=== PATIENT | female | born 1950 ===

== ENCOUNTER 2020-07-21 07:56 | Day surgery (SDC) | payer MEDICARE ==
[~2020-07-21 07:56] MED LIST: Lactated Ringers 1,000 ML IV SCH; Lidocaine 2% 5 ML SDV ONE; Midazolam 1 MG/ML 2 ML SDV ONE; Propofol 200 MG/20 ML SDV ONE; Sodium Chloride 0.9% 10 ML SDV IV PRN; Sodium Chloride 0.9% 10 ML Syringe FLUSH PRN; Sodium Chloride 0.9% 2.5 ML Syringe FLUSH PRN; fentaNYL 100 MCG/2 ML SDV ONE
--- NOTE | 2020-07-21 08:30 | PCM.PREANE ---
Preanesthetic Assessment - Anesthesia/Transfusion/Family Hx Anesthesia History: Prior Anesthesia Without Reaction Other Type of Anesthesia Reaction Comment: has had N&V in the past, not with recent Cholecystectomy Family History of Anesthesia Reaction: No Transfusion History: No Prior Transfusion(s) - Review of Systems General: No Symptoms Pulmonary: No Symptoms Cardiovascular: No Symptoms Neurological: No Symptoms Other: Reports: None - Physical Assessment NPO Status Date: 07/20/20 Vital Signs: Last Vital Signs Temp 97.9 F 07/21/20 08:04 Pulse 81 07/21/20 08:04 Resp 16 07/21/20 08:04 BP 136/86 07/21/20 08:04 Pulse Ox 93 L 07/21/20 08:04 Height: 5 ft 3 in Weight: 86.183 kg ASA Class: 1 Mental Status: Alert & Oriented x3 Dentition: Reports: Dentures (upper) ROM/Head Extension: Full Lungs: Clear to Auscultation, Normal Respiratory Effort Cardiovascular: Regular Rate, Regular Rhythm - Allergies Allergies/Adverse Reactions: Allergies Allergy/AdvReac Type Severity Reaction Status Date / Time Sulfa (Sulfonamide Allergy Vomiting Verified 07/15/20 10:01 Antibiotics) - Blood Blood Available: No - Anesthesia Plan Pre-Op Medication Ordered: None - Acknowledgements Anesthesia Type Planned: General Anesthesia (tiva) Pt an Appropriate Candidate for the Planned Anesthesia: Yes Alternatives and Risks of Anesthesia Discussed w Pt/Guardian: Yes Pt/Guardian Understands and Agrees with Anesthesia Plan: Yes PreAnesthesia Questionnaire HEENT History: Reports: Cataract Cardiovascular History: Reports: None Respiratory History: Reports: None Gastrointestinal History: Reports: None Genitourinary History: Reports: None RUBBER WASHER History: Reports: None Musculoskeletal History: Reports: Fracture, Osteoporosis Other Musculoskeletal History: right ankle Neurological History: Reports: None Psychiatric History: Reports: None Endocrine/Metabolic History: Reports: Obesity/BMI 30+ Hematologic History: Reports: None Immunologic History: Reports: None Oncologic (Cancer) History: Reports: None Dermatologic History: Reports: None - Infectious Disease History Infectious Disease History: Reports: Chicken Pox Other Infectious Disease History: when a child - Past Surgical History Head Surgeries/Procedures: Reports: None HEENT Surgical History: Reports: Cataract Surgery, Tonsillectomy, Other (See Below) Other HEENT Surgeries/Procedures: blepharoplasty Cardiovascular Surgical History: Reports: None, Varicose Respiratory Surgical History: Reports: None GI Surgical History: Reports: Cholecystectomy Female Surgical History: Reports: Tubal Ligation Endocrine Surgical History: Reports: None Neurological Surgical History: Reports: None Musculoskeletal Surgical History: Reports: None Oncologic Surgical History: Reports: None Dermatological Surgical History: Reports: None - SUBSTANCE USE Tobacco Use Status *Q: Former Tobacco User - HOME MEDS Home Medications: Home Meds Calcium/Magnesium/Zinc [Calcium & Magnesium plus Zinc] 1 tab PO DAILY 07/28/16 [History] Multivitamin [Multiple Vitamins] 1 each PO DAILY 07/28/16 [History] Cholecalciferol (Vitamin D3) [Vitamin D3] 1,000 unit PO DAILY 04/03/17 [History] - CURRENT (IN HOUSE) MEDS Current Meds: Current Medications Lactated Ringer's (Ringers, Lactated) 1,000 mls @ 125 mls/hr IV ASDIRECTED ROSA ISELA Last Admin: 07/21/20 08:20 Dose: 125 mls/hr Documented by: Sodium Chloride (Saline Flush) 10 ml FLUSH ASDIRECTED PRN PRN Reason: Keep Vein Open Sodium Chloride (Saline Flush) 2.5 ml FLUSH ASDIRECTED PRN PRN Reason: Keep Vein Open Sodium Chloride (Saline Flush) 10 ml FLUSH ASDIRECTED PRN PRN Reason: Keep Vein Open Sodium Chloride (Saline Flush) 2.5 ml FLUSH ASDIRECTED PRN PRN Reason: Keep Vein Open Sodium Chloride (Normal Saline) 10 ml IV ASDIRECTED PRN PRN Reason: IV Use Discontinued Medications Fentanyl (Sublimaze) Confirm Administered Dose 100 mcg .ROUTE .STK-MED ONE Stop: 07/21/20 07:14 Lidocaine (Xylocaine-Mpf 2%) Confirm Administered Dose 5 ml .ROUTE .STK-MED ONE Stop: 07/21/20 07:14 Midazolam HCl (Versed 1 Mg/Ml) Confirm Administered Dose 2 mg .ROUTE .STK-MED ONE Stop: 07/21/20 07:14 Propofol (Diprivan 20 Ml) Confirm Administered Dose 400 mg .ROUTE .STK-MED ONE Stop: 07/21/20 07:14
[2020-07-21] MEDS ORDERED: ePHEDrine 50 MG/ML SDV ONE (09:09)
--- NOTE | 2020-07-21 09:28 | PCM.OPNOTE ---
- General Post-Op/Procedure Note Date of Surgery/Procedure: 07/21/20 Operative Procedure(s): Diagnostic EGD and colonoscopy Findings: Gastritis and duodenitis, rectal polyp, diverticulosis Pre Op Diagnosis: Change in bowel habits Post-Op Diagnosis: Gastritis and duodenitis, diverticulosis, rectal polyp Anesthesia Technique: General LMA Primary Surgeon: Josselyn Hernández Condition: Good
--- NOTE | 2020-07-21 09:42 | PCM.POSTAN ---
POST ANESTHESIA ASSESSMENT - MENTAL STATUS Mental Status: Alert, Oriented - VITAL SIGNS Vital Signs: Last Vital Signs Temp 97.9 F 07/21/20 08:04 Pulse 93 07/21/20 09:36 Resp 14 07/21/20 09:36 BP 110/53 L 07/21/20 09:36 Pulse Ox 93 L 07/21/20 09:36 - RESPIRATORY Respiratory Status: Respiratory Rate WNL, Airway Patent, O2 Saturation Stable - CARDIOVASCULAR CV Status: Pulse Rate WNL, Blood Pressure Stable - GASTROINTESTINAL GI Status: No Symptoms - PAIN Pain Score: 0 - POST OP HYDRATION Hydration Status: Adequate & Stable
[2020-07-21 09:48] VITALS: BP 113/54; PULSE 91
--- NOTE | 2020-07-21 10:09 | PCM48HPAN ---
Post Anesthesia Note - EVALUATION WITHIN 48HRS OF ANESTHETIC Vital Signs in Normal Range: Yes Patient Participated in Evaluation: Yes Respiratory Function Stable: Yes Airway Patent: Yes Cardiovascular Function Stable: Yes Hydration Status Stable: Yes Pain Control Satisfactory: Yes Nausea and Vomiting Control Satisfactory: Yes Mental Status Recovered: Yes Vital Signs: Last Vital Signs Temp 97.3 F 07/21/20 09:40 Pulse 91 07/21/20 09:40 Resp 14 07/21/20 09:40 BP 113/54 L 07/21/20 09:40 Pulse Ox 91 L 07/21/20 09:40
--- NOTE | 2020-07-21 16:09 | OR ---
SURGEON: JOSSELYN HERNÁNDEZ MD DATE OF PROCEDURE: 07/21/2020 PREOPERATIVE DIAGNOSES: Change in bowel habits, history of melena. POSTOPERATIVE DIAGNOSES: 1. Gastritis and duodenitis. 2. Diverticulosis. 3. Rectal polyp. PROCEDURE PERFORMED: Diagnostic esophagogastroduodenoscopy and colonoscopy. PRIMARY SURGEON: Josselyn Hernández MD ANESTHESIA: MAC, converted to general LMA. INSTRUMENT USED: Olympus endoscope and colonoscope. EXTENT OF EXAM: To the second portion of duodenum, to the cecum. PREPARATION: Good. LIMITATIONS: None. INDICATIONS FOR EXAMINATION: The patient is a 70-year-old female who presents to my clinic with a recent episode of a change in her bowel habits with questionable melena. This has now resolved, but the patient and I are both concerned about the etiology of her melena. The decision was made to proceed with a diagnostic EGD and colonoscopy. The patient and I discussed the procedure, expected perioperative course, and the risks. She verbalized understanding and wishes to proceed. PROCEDURE IN DETAIL: The patient was brought into the endoscopy suite and placed in a left lateral decubitus position. A time-out was completed verifying the patient's name, age, date of , allergies, and procedure to be performed. A bite block was placed in the patient's mouth. Monitored anesthesia care was induced and continuous oxygen was provided via nasal cannula throughout the procedure. After adequate sedation was achieved, a well-lubricated endoscope was placed in the patient's mouth and advanced under direct visualization to the second portion of duodenum. This appeared normal and a photograph was taken. The scope was then fully withdrawn while examining the color, texture, anatomy, and integrity of the mucosa of the upper GI tract. The patient's duodenal bulb/the first portion of duodenum appeared slightly injected, consistent with duodenitis. A biopsy was taken using cold biopsy forceps. The scope was brought into the stomach and a photograph was taken of the pylorus and GE junction. These appeared normal and a photograph was taken. The patient did have evidence of inflamed gastric mucosa, consistent with gastritis. Biopsies were taken of the gastric antrum, body, and fundus and sent for histologic review and H pylori testing. The scope was brought into the distal esophagus. The Z-line appeared normal and a photograph was taken. The remainder of the esophageal mucosa was normal. The scope was removed and this portion of procedure terminated. After the scope was removed, the patient started to have coughing and oxygen desaturations. Her anesthesia was switched to a general LMA and her saturations improved, and the patient stabilized. A digital rectal exam was performed. This exam was within normal limits. A well-lubricated colonoscope was inserted in the rectum and advanced under direct visualization to the level of the cecum. Cecum was identified by both visual and anatomic landmarks. A photograph was taken of the cecal cap; however, I was unable to retroflex the scope within the cecum due to looping of the scope more proximally. The scope was then fully withdrawn while examining the color, texture, anatomy, and integrity of the mucosa from the cecum to the anal canal. The patient had diverticulosis throughout the colon. When the scope was brought into the rectum, a rectal polyp was noted. This was removed in piecemeal fashion using cold biopsy forceps. We then retroflexed within the rectum to allow visualization of the anal canal opening. This appeared normal and a photograph was taken. The scope was then straightened out and fully withdrawn. The cecum to anus time was 9 minutes. The patient tolerated the procedure well and was transferred to the PACU in stable condition. ENDOSCOPIC DIAGNOSES: 1. Gastritis and duodenitis. 2. Diverticulosis. 3. Rectal polyp. RECOMMENDATIONS: Follow up in clinic in 2 weeks. The patient will be started on pantoprazole 40 mg daily starting today. RENAY LOVELACE /[id number]
== END 2020-07-21 10:10 | disposition home or self-care (01) ==
LOC: MW.SDS 07:56
PROVIDERS: ATTEND Surgery
DX: K62.1 Rectal polyp (principal); K29.90 Gastroduodenitis, unspecified, without bleeding; K57.30 Diverticulosis of large intestine without perforation or abscess without bleeding; E66.9 Obesity, unspecified; Z88.2 Allergy status to sulfonamides; Z79.899 Other long term (current) drug therapy; Z98.890 Other specified postprocedural states; Z87.891 Personal history of nicotine dependence; Z68.36 Body mass index [BMI] 36.0-36.9, adult; Z90.49 Acquired absence of other specified parts of digestive tract
CPT/HCPCS: 43239; 45380; 88305; 88312; J2001; J2250; J2704; J3010; J7120; 00813